=== PATIENT | male | born 1970 | race Caucasian/White ===

== ENCOUNTER 2024-06-02 05:50 | Day surgery (SDC) | payer OTHER ==
[2024-05-25 13:11] VITALS: BMI 26.1
[2024-06-02] MEDS ORDERED: Lidocaine 1% MPF 2 ML VIAL ONE (06:02)
[2024-06-02] MEDS ORDERED: CEFAZOLIN 2 GM VIAL ONE (06:02)
[2024-06-02] MEDS ORDERED: Bupivacaine 0.25% HCL 30 ML VIAL ONE (06:29)
[2024-06-02] MEDS ORDERED: EPINEPHrine 1 MG/ML VIAL ONE (06:29)
[2024-06-02] MEDS ORDERED: Tranexamic Acid 1,000 MG/10 ML VIAL ONE (06:32)
[2024-06-02] MEDS ORDERED: Sodium Chloride 0.9% 100 ML ONE (06:32)
[2024-06-02] MEDS ORDERED: fentaNYL 50 mcg/mL 1 mL Vial ONE (06:50)
[2024-06-02] MEDS ORDERED: Midazolam HCl 2 mg/2 ml Vial ONE (06:51)
[2024-06-02] MEDS ORDERED: Rocuronium Bromide 10 MG/ML (10ML VIAL) ONE (07:21)
[2024-06-02] MEDS ORDERED: PROPOFOL 20 ML ONE (07:21)
[2024-06-02] MEDS ORDERED: fentaNYL PF 100 MCG/2 ML SYRINGE ONE (07:21)
[2024-06-02] MEDS ORDERED: Lidocaine 2% PF 5 ML VIAL ONE (07:21)
[2024-06-02] MEDS ORDERED: Dexamethasone 20 MG/5 ML VIAL ONE (07:44)
[2024-06-02] MEDS ORDERED: Ondansetron PF 4 MG/2 ML Vial ONE (07:44)
[2024-06-02] MEDS ORDERED: ePHEDrine Sulfate 50 MG/10 ML VIAL ONE (07:47)
[2024-06-02] MEDS ORDERED: traMADol HCl 50 MG TAB PO PRN ×2 (08:00)
[2024-06-02] MEDS ORDERED: HYDROcodone/Acetaminophen 10/325 mg Tablet PO PRN ×2 (08:00)
[2024-06-02] MEDS ORDERED: Ropivacaine 0.2% 550 ML 550 ML NERVE BLCK SCH (08:00)
[2024-06-02] MEDS ORDERED: Promethazine HCl 25 MG/ML VIAL IM PRN (08:00)
[2024-06-02] MEDS ORDERED: Zolpidem Tartrate 5 MG TAB PO PRN (08:00)
[2024-06-02] MEDS ORDERED: Ondansetron PF 4 MG/2 ML Vial IVP PRN (08:00)
[2024-06-02] MEDS ORDERED: Ketorolac Tromethamine 30 MG (1 mL) VIAL ONE (08:21)
[2024-06-02] MEDS ORDERED: SUGAMMADEX SODIUM 200 MG/2 ML VIAL ONE (08:31)
[2024-06-02] MEDS ORDERED: Ropivacaine 0.5% HCl/PF (150 MG/30 ML VIAL) ONE (12:58)
[2024-06-02] MEDS ORDERED: Ropivacaine 0.2% HCl/PF 20 ML ONE (12:58)
[2024-06-02] MEDS ORDERED: Lidocaine 1% (PF) 30 ML VIAL ONE (12:58)
== END 2024-06-02 10:10 | disposition home or self-care (01) ==
LOC: SDC 05:50
PROVIDERS: ATTEND Orthopaedic Surgery
PROC: 0RBJ4ZZ Excision of Right Shoulder Joint, Percutaneous Endoscopic Approach (ICD-10-PCS; principal; 2024-06-02)
DX: S46.011A Strain of muscle(s) and tendon(s) of the rotator cuff of right shoulder, initial encounter (principal); M47.22 Other spondylosis with radiculopathy, cervical region; M67.921 Unspecified disorder of synovium and tendon, right upper arm; F41.9 Anxiety disorder, unspecified; F31.9 Bipolar disorder, unspecified; F43.10 Post-traumatic stress disorder, unspecified; G47.33 Obstructive sleep apnea (adult) (pediatric); E78.5 Hyperlipidemia, unspecified; Z98.890 Other specified postprocedural states; Z79.899 Other long term (current) drug therapy; Z88.8 Allergy status to other drugs, medicaments and biological substances; X58.XXXA Exposure to other specified factors, initial encounter
CPT/HCPCS: A4306; J0171; J0665; J1100; J1885; J2250; J2405; J2704; J2795; J3010